=== PATIENT | female | born 1955 | race Caucasian/White ===

== ENCOUNTER 2017-06-10 21:53 | Observation (INO) | payer BC ==
[~2017-06-10] VITALS: Ht 157.5 cm; Wt 72.8 kg
[~2017-06-10 21:53] MED LIST: CHILDREN'S ASPI81 M1 PO; CRESTOR10 MG PO; EXCEDRIN BACK1 EACH PO; HTN; MOTRIN600 MG PO; ULTRACET1 TABLET PO
[2017-06-10 22:36] LABS: HEMATOCRIT 36.7 % (36.0-46.0); HEMOGLOBIN 11.9 G/DL (11.9-15.5); MCH 30.1 PG (29.0-34.0); MCHC 32.4 G/DL (30.0-36.0); MCV 92.7 FL (83-99); PLATELET COUNT 260 K/uL (156-360); RBC DIS.WIDTH-CV 13.8 % (11.8-14.6); RBC DIS.WIDTH-SD 47.1 % (39-53); RED BLOOD COUNT 3.96 M/uL (3.80-5.20); WHITE BLOOD COUNT 8.5 K/uL (4.1-10.2)
[2017-06-10 22:49] LABS: CHLORIDE 106 mEq/L (99-109); POTASSIUM 4.1 mEq/L (3.7-5.4); SODIUM 149 mEq/L (136-147)
[2017-06-10 22:51] LABS: GLUCOSE 183 mg/dL (70-99)
[2017-06-10 22:55] LABS: CREATININE 1.3 mg/dL (0.6-1.3); GFR ESTIMATE (CALCULATED) 44 mL/min/
[2017-06-10 22:56] LABS: UREA NITROGEN (BUN) 22 mg/dL (9-23)
[2017-06-10] MEDS ORDERED: LIPITOR40 MG PO (23:05)
[2017-06-10] MEDS ORDERED: BYSTOLIC10 MG PO (23:06)
[2017-06-10] MEDS ORDERED: METFORMIN HCL750 MG PO (23:07)
[2017-06-10] MEDS ORDERED: COZAAR100 MG PO (23:07)
[2017-06-10] MEDS ORDERED: VITAMIN D31000 UNIT PO (23:08)
[2017-06-11 02:00] VITALS: BP 151/80
[2017-06-11 02:44] LABS: HDL CHOLESTEROL 39 MG/DL (Desirable>=50); LDL CHOLESTEROL 96 mg/dL (Desirable<100); NON-HDL CHOLESTEROL 147 mg/dL (Desirable<160); TOTAL CHOLESTEROL 186 mg/dL (Desirable<200); TRIGLYCERIDES 255 MG/DL (Normal: <150)
[2017-06-11 04:41] VITALS: BP 182/76
[2017-06-11 08:20] VITALS: BP 143/82
[2017-06-11 10:39] LABS: HEMOGLOBIN A1c (GLYCOHEMOGLOB) 6.7 % (Below 5.7)
[2017-06-11 15:20] VITALS: BP 187/81
[2017-06-11 20:00] VITALS: BP 181/84
[2017-06-11 23:44] VITALS: BP 137/74
[2017-06-12 04:03] VITALS: BP 197/81
[2017-06-12 09:05] LABS: HEMATOCRIT 35.3 % (36.0-46.0); HEMOGLOBIN 11.1 G/DL (11.9-15.5); MCH 29.1 PG (29.0-34.0); MCHC 31.4 G/DL (30.0-36.0); MCV 92.4 FL (83-99); PLATELET COUNT 257 K/uL (156-360); RBC DIS.WIDTH-CV 13.9 % (11.8-14.6); RBC DIS.WIDTH-SD 47.1 % (39-53); RED BLOOD COUNT 3.82 M/uL (3.80-5.20); WHITE BLOOD COUNT 7.2 K/uL (4.1-10.2)
[2017-06-12 09:30] LABS: CHLORIDE 104 MEQ/L (99-109); CREATININE 0.9 MG/DL (0.6-1.3); GFR ESTIMATE (CALCULATED) > 59 mL/min/; GLUCOSE 127 mg/dL (70-99); POTASSIUM 4.5 MEQ/L (3.7-5.4); SODIUM 142 MEQ/L (136-147); UREA NITROGEN (BUN) 18 mg/dL (9-23)
[2017-06-12 09:43] VITALS: BP 142/68
[2017-06-12 12:07] VITALS: BP 168/81
[2017-06-12 14:33] VITALS: BP 160/77
[2017-06-12] MEDS ORDERED: CLOPIDOGREL75 MG PO (15:21)
[2017-06-12] MEDS ORDERED: SUMATRIPTAN SUC25 MG PO (15:22)
[2017-06-12] MEDS ORDERED: KETOROLAC TROME10 MG PO (15:23)
== END 2017-06-12 17:12 | disposition home or self-care (01) ==
LOC: EME → EDBD 21:53 → EME 21:53 → EDOF 23:52 → 5WEST 23:52 → ENRESERV 23:53 → 5WEST 06-11 01:46 → ENPENDDIS 06-12 → 5WEST 06-12 17:12
PROVIDERS: Hospitalist; Nurse Practitioner Adult Health
DX: G45.9 Transient cerebral ischemic attack, unspecified (principal); I16.0 Hypertensive urgency; I10 Essential (primary) hypertension; E11.9 Type 2 diabetes mellitus without complications; Z79.82 Long term (current) use of aspirin; E78.5 Hyperlipidemia, unspecified; Z82.49 Family history of ischemic heart disease and other diseases of the circulatory system
CPT/HCPCS: 70450; 70496; 70498; 70551; 71046; 80048; 80061; 82948; 83036; 85027; 93005; 93306; 99281; 99285; G0378; J0360; J1644; J1885; J7040